=== PATIENT | female | born 1960 | race African-American/Black ===

== ENCOUNTER 2023-02-14 16:46 | Emergency (ER) | payer OTHER ==
[~2023-02-14] VITALS: Ht 165.1 cm; Wt 70.0 kg
[2023-02-14 16:54] VITALS: O2SAT 98
[2023-02-14] MEDS ORDERED: ONDANSETRON HCL 4MG/2ML INJ IV STA (17:02)
[2023-02-14] MEDS ORDERED: MORPHINE SULFATE 4 MG/ML CPJ (NOT FOR IM USE) IV ONE (17:15)
[2023-02-14] MEDS ORDERED: SODIUM CHLORIDE 0.9% 1,000 ML IV ONE (17:15)
[2023-02-14 17:23] LABS: BASOPHILS % 0.2 % (0.0-2.0); EOSINOPHILS % 0.4 % (0.0-5.0); HEMATOCRIT. 41.4 % (36.0-48.0); LYMPHOCYTES % 11.2 % (20.0-50.0); MEAN CORPUSCULAR HEMOGLOBIN 30.3 pg (28.0-32.0); MEAN CORPUSCULAR HGB CONC 33.9 g/dL (31.0-37.0); MEAN CORPUSCULAR VOLUME 89.3 fL (81.0-99.0); MEAN PLATELET VOLUME 7.4 fl (7.4-10.4); NEUTROPHILS % 83.2 % (40.0-76.0); PLATELET 236 x1000/uL (130-400); RED BLOOD CELL COUNT 4.63 mill/uL (4.2-5.4); RED CELL DISTRIBUTION WIDTH 12.7 % (11.6-14.6)
[2023-02-14 17:34] LABS: CHLORIDE 107 mEq/L (98-107); INDEX HEMOLYSI 1 (1-3); INDEX ICTERIC 1 (1-4); INDEX LIPEMIC 1 (1-3); POTASSIUM 3.5 mEq/L (3.5-5.1); SODIUM 139 mEq/L (136-145)
[2023-02-14 17:44] LABS: ALANINE AMINOTRANSFERASE 18 IU/L (13-61); ALBUMIN 3.3 g/dL (3.4-5.0); ASPARTATE AMINOTRANSFERASE 15 IU/L (15-37); BILIRUBIN TOTAL 0.3 mg/dL (0.1-1.0); CALCIUM 9.3 mg/dL (8.5-10.1); CARBON DIOXIDE 24 mEq/L (21-32); CREATININE 0.7 mg/dL (0.6-1.3); ETHANOL BLOOD < 10 mg/dL (-10); GLUCOSE 128 mg/dL (70-105); PROTEIN TOTAL 6.8 g/dL (6.0-8.3); UREA NITROGEN BLOOD 13 mg/dL (7-21)
[2023-02-14 17:45] LABS: TROPONIN I HIGH SENSITIVITY 6 ng/L (<54)
[2023-02-14 18:09] LABS: CLARITY URINE CLEAR (CLEAR); COLOR URINE YELLOW (YELLOW); SPECIFIC GRAVITY URINE 1.015 (1.005-1.030)
[2023-02-14 18:10] LABS: GLUCOSE URINE NEGATIVE (NEGATIVE); KETONES URINE TRACE (NEGATIVE); NITRITE URINE NEGATIVE (NEGATIVE); OCCULT BLOOD URINE 2+ (NEGATIVE); PROTEIN URINE 1+ (NEGATIVE)
[2023-02-14 18:11] LABS: LEUKOCYTE ESTERASE URINE NEGATIVE (NEGATIVE); UROBILINOGEN URINE >8.0 E.U./dL (0.2-1.0)
[2023-02-14 18:18] LABS: SQUAMOUS EPITHELIAL CELL URINE 1+ /lpf (RARE/1+); WBC URINE 0-2 /hpf (0-2)
[2023-02-14 18:19] LABS: BACTERIA URINE TRACE; YEAST URINE NONE SEEN
[2023-02-14] MEDS ORDERED: FAMOTIDINE 20MG TABLET PO SCH (19:30)
[2023-02-14] MEDS ORDERED: ONDA4TAB50 MT (19:31)
[2023-02-14] MEDS ORDERED: FAMO40TA7 MT (19:31)
[2023-02-14] MEDS ORDERED: MAG355OR21 MT (19:31)
[2023-02-14] MEDS ORDERED: OXYCODONE HCL/ACETAMINOPHEN 5/325MG TABLET PO ONE (20:00)
[2023-02-14 20:05] LABS: TROPONIN I HIGH SENSITIVITY 8 ng/L (<54)
[2023-02-14 20:34] VITALS: BP 142/78; PULSE 81; RESP 16; TEMP 98.5
== END 2023-02-14 20:36 | disposition home or self-care (01) ==
LOC: ER 16:46
DX: R10.13 Epigastric pain (principal); I10 Essential (primary) hypertension
CPT/HCPCS: 80053; 81003; 80320; 83690; 85025; 84484; 36415; 71045; 74177; 96361; 96374; 96375; 99285; J2405; J2270; J7030; Z7610 ×3; G0480

== ENCOUNTER 2024-03-24 20:57 | Emergency (ER) | payer SELFPAY ==
[~2024-03-24] VITALS: Ht 170.2 cm; Wt 72.0 kg
[~2024-03-24 20:57] MED LIST: FAMO40TA7 MT; MAG355OR21 MT; ONDA4TAB50 MT
[2024-03-24 20:59] VITALS: O2SAT 98
[2024-03-24] MEDS: TETANUS, DIPHTHERIA, PERTUSSIS VAC/PF 0.5ML (>10YR OLD) IM ONE (21:15)
[2024-03-24 21:30] VITALS: BP 127/72; PULSE 75; RESP 20; O2SAT 99
[2024-03-24 21:51] VITALS: TEMP 98.7
[2024-03-24] MEDS: ACETAMINOPHEN 325MG TABLET PO ONE (21:51)
== END 2024-03-24 23:00 | disposition home or self-care (01) ==
LOC: ER 20:57
DX: S00.33XA Contusion of nose, initial encounter (principal); S63.91XA Sprain of unspecified part of right wrist and hand, initial encounter; I10 Essential (primary) hypertension; W18.39XA Other fall on same level, initial encounter; Y93.89 Activity, other specified; Y92.89 Other specified places as the place of occurrence of the external cause; Y99.8 Other external cause status
CPT/HCPCS: 73130; 70486; 90715; 90471; 99285; Z7610 ×2; 99284